=== PATIENT | female | born 1980 | race Caucasian/White ===

== ENCOUNTER 2016-06-16 02:07 | Emergency (ER) | payer MEDICAID ==
[~2016-06-16] VITALS: Wt 77.0 kg
[2016-06-16] MEDS ORDERED: IBUP-1542 PO ×2 (03:36→04:24)
--- NOTE | 2016-06-16 03:37 | ERD ---
ER Documentation Chief Complaint Date/Time DATE: 06/16/16 TIME: 03:35 Chief Complaint mid back pain one week HPI 36-year-old female presents here in emergency department for complaints of mid back pain for one week now. Patient described the pain as sharp pain, 6/10 scale , is worse upon taking a deep breath. Patient states that it radiates to the mid chest area. Patient denies any palpitations or irregular heartbeat. Patient denies any dizziness. Patient denies any dyspnea on exertion or dyspnea on lying down. Patient denies any nausea or vomiting. Patient denies any cough. Patient denies any wheezing. Patient did take ibuprofen for pain with mild relief. Patient states is also worse upon movement of the back. ROS All systems reviewed and are negative except as per history of present illness. Medications Home Meds Reported Medications Ibuprofen* (Motrin*) Unknown Strength Tab, PO Q6H Y for PAIN AND OR ELEVATED TEMP, #30 TAB 06/16/16 Allergies Allergies: Coded Allergies: No Known Allergy (Unverified , 06/16/16) PMhx/Soc Medical and Surgical Hx: pt denies Surgical Hx History of Surgery: No Hx Miscellaneous Medical Probl: Yes (gallstones ) Hx Alcohol Use: No Hx Substance Use: No Hx Tobacco Use: No Smoking Status: Never smoker FmHx Family History: No coronary disease, No diabetes, No other Physical Exam Vitals Vital Signs Date Time Temp Pulse Resp B/P Pulse Ox O2 Delivery O2 Flow Rate FiO2 06/16/16 02:11 98.3 84 18 127/69 99 Physical Exam GENERAL: The patient is well developed and appropriate for usual state of health, in no apparent distress. CHEST: Clear to auscultation bilaterally. There are no rales, wheezes or rhonchi. HEART: Regular rate and rhythm. No murmurs, clicks, rubs or gallops. No S3 or S4. ABDOMEN: Soft, nontender and nondistended. Good bowel sounds. No rebound or guarding. No gross peritonitis. No gross organomegaly or masses. No Amador sign or McBurney point tenderness. BACK: No midline or flank tenderness. No spasms noted on the upper paraspinal aspect thoracic spine. EXTREMITIES: Equal pulses bilaterally. There is no peripheral clubbing, cyanosis or edema. No focal swelling or erythema. Full range of motion. Grossly neurovascularly intact. NEURO: Alert and oriented. Cranial nerves 2-12 intact. Motor strength in all 4 extremities with 5/5 strength. Sensation grossly intact. Normal speech and gait. SKIN: There is no apparent rash or petechia. The skin is warm and dry. HEMATOLOGIC AND LYMPHATIC: There is no evidence of excessive bruising or lymphedema. No gross cervical, axillary, or inguinal lymphadenopathy. Results 24 hrs EKG was done, read by me and is normal sinus rhythm at a rate of 73, normal axis , there is no ST changes or changes in the EKG that indicates any cardiac emergencies at this time. Patient's EKG was also reviewed by Dr. Kwok. Impression: no acute findings on EKG PROCEDURE: XR Chest. CLINICAL INDICATION: Chest and back pain. TECHNIQUE: PA and Lateral views of the chest were obtained. COMPARISON: There are no similar studies submitted for comparison. FINDINGS: The heart is normal in size. The lungs are clear without evidence of infiltrate. There is no pleural effusion. No pneumothorax is identified. The osseous structures are intact. IMPRESSION: No evidence for acute cardiopulmonary disease. RPTAT: HIKT .Kapil Mares MD, MD Date Time Electronically viewed and signed by .Kapil Mares MD, MD on 06/16/2016 04:11 Procedures/MDM Medical Decision Making: Patient's pain is most likely consistent with a back muscle contusion or strain, no specific pain at this time. There is no suspicion for neurovascular compromise. Patient has intact sensation and circulation of the affected extremity. There is low suspicion for septic arthritis. Patient does not have any fever. Radiology exams of the affected area does not show any fracture or dislocation. EKG does not show any cardiopulmonary emergencies at this time. Low suspicion for acute coronary syndrome. Low suspicion for aortic dissection, aortic aneurysm, any other cardiopulmonary emergencies at this time. No pneumothorax noted. Disposition: Home. Patient is given prescription for ibuprofen for pain, Flexeril for muscle spasm. Patient was advised to elevate the affected area and apply ice on affected area. Patient was advised that if symptoms are worse, numbness, tingling, high fever, unable to move joint, worsening symptoms, to return to emergency department immediately. Otherwise, patient is advised to follow up with the primary care doctor in 5-7 days for reevaluation of symptoms. Departure Diagnosis: Primary Impression: Back pain Back pain location: thoracic back pain Chronicity: acute Back pain laterality: bilateral Qualified Code: M54.6 - Acute bilateral thoracic back pain Condition: Stable Patient Instructions: Back Pain (Acute Or Chronic) Additional Instructions: Patient is given prescription for ibuprofen for pain, Flexeril for muscle spasm. Patient was advised to elevate the affected area and apply ice on affected area. Patient was advised that if symptoms are worse, numbness, tingling, high fever, unable to move joint, worsening symptoms, to return to emergency department immediately. Otherwise, patient is advised to follow up with the primary care doctor in 5-7 days for reevaluation of symptoms. JARROD LIZAMA NP Jun 16, 2016 03:37
--- NOTE | 2016-06-16 04:12 | RADRPT ---
PROCEDURE: XR Chest. CLINICAL INDICATION: Chest and back pain. TECHNIQUE: PA and Lateral views of the chest were obtained. COMPARISON: There are no similar studies submitted for comparison. FINDINGS: The heart is normal in size. The lungs are clear without evidence of infiltrate. There is no pleural effusion. No pneumothorax is identified. The osseous structures are intact. IMPRESSION: No evidence for acute cardiopulmonary disease. RPTAT: HIKT .Kapli Mares MD, MD Date Time Electronically viewed and signed by .Kapil Mares MD, MD on 06/16/2016 04:11 .T/
[2016-06-16] MEDS ORDERED: CYCL-319 PO (04:24)
== END 2016-06-16 04:45 | disposition home or self-care (01) ==
LOC: FTE 02:07
DX: M54.6 Pain in thoracic spine (principal)
CPT/HCPCS: 71020; 93005